=== PATIENT | female | born 1955 | race Caucasian/White ===

== ENCOUNTER 2022-02-21 09:12 | Observation (INO) ==
--- NOTE | 2022-02-11 11:57 | PAT Medication Instructions ---
Medication Instructions Date of Service February 11, 2022 Home Medications meloxicam 7.5 mg tablet 7.5 mg PO QAM multivitamin 1 tab PO QAM glucosamine sulfate 500 mg tablet (Glucosamine) 500 mg PO QAM turmeric root extract 500 mg capsule 500 mg PO QAM ASK your surgeon for instructions meloxicam 7.5 mg tablet 7.5 mg PO QAM STOP taking 2 weeks before surgery (or as soon as possible if surgery is within 2 weeks) glucosamine sulfate 500 mg tablet (Glucosamine) 500 mg PO QAM turmeric root extract 500 mg capsule 500 mg PO QAM DO NOT take the morning of surgery multivitamin 1 tab PO QAM Other Notes If you have any questions please call us at [phone] or [phone] or [phone] or [phone]
--- NOTE | 2022-02-12 12:52 | Anesthesiology Consultation ---
Date of Service February 12, 2022 Assessment & Plan (1) Encounter for pre-operative examination: Chart Review Chart Review: Acceptable Risk for Surgery (pending preop Covid testing results ) and Patient seen in Pre Admission Testing Per PAT appt on 02/12/22, patient denies any recent travel or large group activities. No known Covid positive exposures or Covid related symptoms. No known Covid infection in the past 90 days. Pt is vaccinated for Covid. Preop Covid testing scheduled 02/19/22 = will await results. Educated on importance of self quarantining, social distancing and wearing mask in public for the patient one week prior to surgery and after Covid testing done Teaching & Discussion Pre-Anesthesia Teaching/Discussion Notes: Instructed NPO after midnight before surgery,except medications with 15 cc of water. Medication instructions provided according to the [facility] guidelines. History Surgery Operation Date: 02/21/22 12:30 Proposed Procedures p Right Total Knee Replacement - Eduardo Bunn MD Height/Weight Height: 4 ft 11.5 in Weight: 58.5 kg Allergies Allergy/AdvReac Type Severity Reaction Status Date / Time PENICILLIN Allergy Unknown Unknown Uncoded 02/11/22 11:19 Medications Home Medications Medication Instructions Recorded Confirmed Last Taken meloxicam 7.5 mg tablet 7.5 mg PO QAM 07/05/21 02/11/22 Unknown multivitamin 1 tab PO QAM 07/05/21 02/11/22 Unknown glucosamine sulfate 500 mg tablet 500 mg PO QAM 02/06/22 02/11/22 Unknown (Glucosamine) turmeric root extract 500 mg 500 mg PO QAM 02/11/22 02/11/22 Unknown capsule Past Medical History Medical History Arthritis Knees and right hand History of COVID-19 08/2021, 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 No residual issues Hx of renal calculi No recent issues Exercise / Class Metabolic Activity II 4-5 Yardwork/Stairs/Walk up hill (one flight of stairs - no chest pain or SOB ) Past Surgical History Surgical History History of wisdom tooth extraction Hx of colonoscopy Past Anesthesia History No Hx of Anesthesia Complications and No Family Hx of Anesthesia Complications History of PONV No Hx of PONV and No Hx of Motion Sickness Social History Smoking Status: Never smoker Do You Dip or Chew Tobacco: No Hx Alcohol Use: Yes (wine cooler) Alcohol type: other alcohol intake frequency: holidays/special occasions only Hx Substance Use: No substance use type: does not use Review of Systems Mild snoring- no witnessed apnea- no hx of sleep study Patient denies chest pain, shortness of breath, dyspnea on exertion, reflux, cough, wheezing, palpitations. No hx of seizures, stroke, ME. No hx of blood clots or blood transfusions Physical Exam Vital Signs VITALS BP 149/69 P 78 TEMP 98.4 SP02 96% RESP 16 Constitutional no acute distress ENMT Mouth: no TMJ clicking Thyromental Distance: < 3.5 Finger Breadths (3.0) Mallampati Class: III Missing molar Neck + limited neck extension (mild ) Respiratory normal respiratory effort; no respiratory distress Auscultation: lungs clear to auscultation bilaterally; no wheezes Cardiovascular Rate/Rhythm: regular rate and regular rhythm Heart Sounds: no murmur Vessels: no carotid bruit Musculoskeletal Spine: no pain with cervical ROM Extremities: extremities normal to inspection Psychiatric Orientation: alert Lab Results Anesthesia Preop Results Results Anesthesia Widget: WBC 4.30 K/ul (4.8-10.8) L 02/12/22 Hgb 12.8 g/dl (12.0-16.0) 02/12/22 Hct 37.5 % (34.1-44.9) 02/12/22 Plt 342 K/uL (130-400) 02/12/22 Na 139 mmol/L (136-145) 02/12/22 K 4.0 mmol/L (3.5-5.1) 02/12/22 Cl 106 mmol/L (98-107) 02/12/22 CO2 26 mmol/L (21-32) 02/12/22 BUN 15 mg/dl (6-23) 02/12/22 Creat 0.69 mg/dl (0.6-1.2) 02/12/22 Glucose Level 97 mg/dl (70-99(Fasting)) 02/12/22 PT 10.5 Seconds (9.0-12.0) 02/12/22 PTT 26.9 Seconds (21.0-31.0) 02/12/22 INR 1.0 (0.9-1.1) 02/12/22 Blood Type A Positive 02/12/22 Antibody Screen NEGATIVE 02/12/22 Testing Electrocardiogram Date: 02/12/22 Findings: + NSR @ (74bpm ) Normal EKG per cardio. Chest X-Ray Date: 02/12/22 Findings: + NAD
[~2022-02-21 09:12] MED LIST: ACETAMINOPHEN 500 MG TAB PO SCH; BUPIVACAINE 0.5 % 5 MG/1 ML PF 10ML VIAL ONE; BUPIVACAINE LIPOSOME/PF 266 MG, BUPIVACAINE/EPINEPHRINE 50 ML, SODIUM CHLORIDE 0.9% 30 ... INFIL SCH; CEFAZOLIN SCH; CeleBREX 200 MG CAP PO SCH; EPINEPHrine INJ 1 MG/ML AMP ONE; FAMOTIDINE 20 MG TAB PO SCH; LR 500ML BOLUS, THEN 15ML/HR IV SCH; LR 60ML/HR IV SCH; METOCLOPRAMIDE HCL 10 MG TABLET PO SCH; ROPIVACAINE 0.5% 5 MG/ML 30 ML VIAL ONE; Scopolamine 1 MG TDSY TD SCH; TRANEXAMIC ACID 1,000 MG **IV Intra-op IV SCH; ceFAZolin 2000MG 2,000 MG/15 ML SYR IV SCH
[2022-02-21] MEDS ORDERED: fentaNYL citrate 100 MCG/2 ML VIAL ONE (09:30)
[2022-02-21] MEDS ORDERED: MIDAZOLAM HCL 1 MG/ML 2ML VIAL ONE (09:34)
[2022-02-21] MEDS ORDERED: PROPOFOL IV EMULSION 10 MG/ML 20 ML VIAL IV ONE (09:34)
--- NOTE | 2022-02-21 10:39 | History & Physical Bridge Note ---
Date of Service February 21, 2022 History & Physical Bridge Note I have examined the patient, reviewed the History & Physical and in the interval since the performance of the History & Physical I have noted the following changes of clinical significance: no changes noted
[2022-02-21] MEDS ORDERED: BUPIVACAINE/EPINEPHRINE 0.25% 1:200,000 30 ML VIAL ONE (10:40)
[2022-02-21] MEDS ORDERED: SODIUM CHLORIDE 0.9% PF 50 ML VIAL ONE (10:41)
[2022-02-21] MEDS ORDERED: BUPIVACAINE LIPOSOME 1.3% 266 MG/20 ML VIAL ONE (10:41)
--- NOTE | 2022-02-21 12:51 | Operative Report ---
PG Post Operative Report Pre & Post Diagnosis Operation Date: 02/21/22 10:40 Pre-Op Diagnosis: Right Knee Advanced Degenerative Joint Disease Post-Op Diagnosis: Right Knee Advanced Degenerative Joint Disease I identified the patient and participated in the time-out.: Yes Procedure Operation Date: 02/21/22 10:40 Actual Procedures p Right Total Knee Replacement - Eduardo Bunn MD Surgeon Eduardo Bunn MD Sales Enablement Consultant Laci España PA-C Estimated Blood Loss 50 Findings Consistent with Post-Op Diagnosis Operative findings revealed advanced right knee tricompartment DJD. She had grade 4 [id number] disease in all 3 compartments most severe in the medial side. She had significant osteophytes particularly anteriorly and medially. She had a varus deformity to her knee and about a 15 degree flexion contracture with a fixed varus deformity. Fluids 600 cc Specimens Right knee sent for pathology Drains None Anesthesia Type Spinal MAC Complications none Indications Patient is 66-year-old reasonably active female has had a long history of bilateral knee pain discomfort that is gradually gotten worse over the time patient been to extensive conservative treatment which became less successful over time. Pain has been debilitating that she can trouble walking and doing any significant activities. She elected proceed with total knee arthroplasty. Description of Procedure Operative implants consist of: 1 Biomet Vanguard size 62.5 right posterior stabilized femoral component. 2. Biomet size 63 tibial tray. 3. 10 mm posterior stabilized polyethylene insert. 4. 28 x 8 all Paller patella. The patient was taken to the operating room, identified, placed on the operating table supine position protectors were properly padded. IV antibiotics arrived by anesthesia team. A spinal anesthetic and been implemented in the holding room along with an abductor canal block. A Helms catheter was placed in sterile fashion. Right Tetrick was then placed in the right lower extremities and prepped and draped in usual sterile fashion. The right leg was elevated exsanguinated with use of an Esmarch and the tourniquet was set at 300 mmHg. An anterior approach to the right knee was then performed to longitudinal incision centered over the patella. Sharp dissection was carried through subcutaneous tissue down the extensor mechanism. A medial parapatellar arthrotomy incision was made. Some subperiosteal dissection was carried out medially. The fat pad was resected from Neath patella tendon. The lateral patellofemoral ligament was released. Patella subluxated laterally and the knee was flexed. The osteophytes taken off distal femur. The ACL and PCL were then released from distal femur the tibia subluxated anteriorly. The external tibial alignment jig was then placed the anterior face of the tibia and adjusted 14 mm medially. Proximal tibial cut was made to remove about a millimeter bone from most deficient aspect medial tibial plateau. Some osteophytes taken off medial and posterior medially. Tibia sized to a size 63. Attention drawn the femur. The distal femur during the sharp drop with intramedullary canal was suction. A right 5 degree valgus cutting guide was placed. Distal femoral cutting block was pinned in place. Distal femoral cut was made to take an additional 3 mm bone off distal femur. The femur was then sized to a size 62.5. The AP cutting block was pinned parallel to the epicondylar axis which was 4 degrees of external rotation. The anterior cut, anterior chamfer, posterior cut, posterior chamfer cuts were made. The box cutting guide was placed in just slight lateral box cut was made. The knee was flexed. The remnants of the medial and lateral menisci were excised. The osteophytes taken off the posterior aspect of femur. A trial femoral component was placed. The tibial tray was pinned in maximum external rotation and the drill and stem punch were used to create defect in proximal tibia for the tibial tray. Knee was then trialed and the 10 mm insert fit most appropriately. Attention drawn the patella. The patella was cleaned of all soft tissue. Patella thickness measured 18 mm in thickness was cut down to 12. It was sized to a size 28 patella. The lug holes were drilled for the 31 patella. The lateral osteophyte was removed. Patella button was placed. Knee was taken through range of motion and the patella tracked nicely with no thumbs test. Attention drawn to place the permanent components. All trial components were removed. Bone plug was placed in the distal femur limit blood loss. Double batch Palacos G cement was mixed. A Biomet Vanguard size 62.5 right posterior stabilized femoral component, size 63 tibial tray, a 10 mm posterior stabilized polyethylene insert, and a 28 x 8 all Paller patella then cemented in place. Knee was brought out into full extension total cement hardened. Final cement check was then performed. The pericapsular tissues were injected with total 100 cc of combination of 20 cc of Exparel, 30 cc normal saline, 50 cc of quarter percent Marcaine with epinephrine. Patient did receive 1 g tranexamic acid. The tourniquet was then let down for final tourniquet time of 52 minutes. Hemostasis reduced electrocautery. Extensor mechanism closed with combination 1 PDS suture and #1 Vicryl suture in a [id number] fashion. Extensor mechanism checked found to be intact with subcutaneous tissue then closed with 2 Dexon suture in a buried interrupted fashion skin was closed skin burak. Leg was then cleaned and dried a sterile dressing was Xeroform, 4 x 4's, sterile cast padding, Aurelio bandage were applied. Patient then transferred to the recovery room in stable condition. Patient tolerated procedure well and there were no complications. Laci España, my physician bilingual legal assistant, was present for the entire procedure. His assistance was essential and required for appropriate patient positioning, prepping and draping, surgical exposure, performing the technical details of the operation, placement the implants, closure of the wound, and placement of the sterile bandage. I attest to the content of the Intraoperative Record and any orders documented therein. Any exceptions are noted below.
--- NOTE | 2022-02-21 13:04 | XRay Report ---
XR knee RT 1 or 2V routine CLINICAL HISTORY: Surgical Post Op. Status post total knee replacement COMPARISON STUDY: No previous studies for comparison. TECHNIQUE: 2 right knee views FINDINGS: The patient is status post total knee replacement. The prosthetic components are in anatomi c alignment with no acute abnormality seen. Air is present within the soft tissues from the procedure . Skin burak are seen anteriorly. IMPRESSION: 1. Status post total knee replacement with resurfacing of the patella. ACT 112: Negative or not required by law. Electronically signed by: Rick Stanton M.D. 02/21/2022 1:02 PM
--- NOTE | 2022-02-21 13:37 | Anesthesiology Progress Note ---
Date of Service February 21, 2022 Anesthesia Post Procedure Vital Signs Vital Signs: Temp Pulse Pulse Resp BP Pulse Ox O2 Del Method 02/21/22 13:10 36.3 C L 91 H 18 133/71 98 Room Air 02/21/22 13:00 76 19 122/63 99 Oxymask 02/21/22 12:50 80 16 125/61 99 Oxymask 02/21/22 13:20 85 20 126/69 96 Room Air 02/21/22 12:40 81 15 127/66 99 Oxymask 02/21/22 12:38 36.2 C L 91 H 14 134/67 98 Oxymask 02/21/22 09:49 36.4 C L 71 18 168/88 H Room Air O2 Flow Rate 02/21/22 13:10 02/21/22 13:00 3 02/21/22 12:50 3 02/21/22 13:20 02/21/22 12:40 6 02/21/22 12:38 6 02/21/22 09:49 Pain Intensity Right Knee: Pain Intensity: 0 Transfer of Care Handoff Completed per policy Notes Mental Status: alert / awake / arousable Patient Amnestic to Procedure: Yes Nausea / Vomiting: adequately controlled Pain: adequately controlled Airway Patency, RR, SpO2: stable & adequate BP & HR: stable & adequate Hydration State: stable & adequate Neuraxial Anesthesia: was administered and sensory block is resolving Anesthetic Complications: no major complications apparent
[2022-02-21] MEDS ORDERED: ePHEDrine sulfate 50 MG/ML AMP IV PRN (13:42)
[2022-02-21] MEDS ORDERED: ATROPINE SULFATE 0.1 MG/ML 10ML SYR IV PRN (13:42)
[2022-02-21] MEDS ORDERED: bisacodyL 10 MG SUPP PR PRN (13:57)
[2022-02-21] MEDS ORDERED: ONDANSETRON INJ 2 MG/ML 2 ML VIAL IV PRN (13:57)
[2022-02-21] MEDS ORDERED: oxyCODONE HCL IR 5 MG TAB (IMMEDIATE RELEASE) PO PRN (13:57)
[2022-02-21] MEDS ORDERED: METOCLOPRAMIDE HCL INJ 5 MG/ML 2 ML VIAL IV PRN (13:57)
[2022-02-21] MEDS ORDERED: HYDROmorphone INJ 0.5 MG/0.5 ML SYR IV PRN (13:57)
[2022-02-21] MEDS ORDERED: SODIUM CHLORIDE 0.9% 1000ML 1,000 ML IV SCH (13:57)
[2022-02-21] MEDS ORDERED: MAGNESIUM HYDROXIDE SUSP 30 ML UDC PO PRN (13:57)
[2022-02-21] MEDS ORDERED: ALUMINUM/MAGNESIUM SUSP 30 ML UDC PO PRN (13:57)
[2022-02-21] MEDS ORDERED: NALOXONE HCL 0.4 MG/1 ML VIAL/CARP IV PRN (13:57)
[2022-02-21] MEDS ORDERED: diphenhydrAMINE Capsule 25 MG CAP PO PRN (13:57)
[2022-02-21] MEDS ORDERED: KETOROLAC 30 MG/ML VIAL ONE (16:26)
[2022-02-21] MEDS: KETOROLAC 30 MG/ML VIAL IV SCH ×2 (16:29→20:44)
--- NOTE | 2022-02-21 16:41 | Progress Notes ---
DATE OF NOTE: 02/21/2022. SUBJECTIVE: A 66-year-old female postoperative from right knee replacement. She is doing well. Jus t waiting for a bed placement. No chest pain or shortness of breath. She has got the feeling back i n her legs. OBJECTIVE: VITAL SIGNS: Temperature 36.3. Vital signs are stable. GENERAL: Physical exam shows a pleasant middle-aged female. She is sitting up in bed and looks comf ortable. Awake, alert and oriented. LUNGS: Clear to auscultation. HEART: Regular rate and rhythm. ABDOMEN: Soft, nontender, nondistended. EXTREMITIES: Grossly neurovascularly intact except as follows. Examination of the right leg reveals the leg to be well aligned. Dressing is clean, dry and intact. She can dorsiflex and plantarflex her foot appropriately. She is neurologically intact. X-RAYS: X-rays of the right knee from recovery room are reviewed. It shows a cemented posterior sta bilized total knee arthroplasty. Components looked to be in good position. No signs of problems. ASSESSMENT: A 66-year-old white female postoperative from right knee replacement, doing well. Pain is controlled. She is neurologically intact. PLAN: 1. DVT prophylaxis includes thigh-high TEDs, SCDs, and aspirin twice a day. 2. PT, OT, weightbear as tolerated. Right total knee protocol. 3. Pain control, doing okay with current pain regimen. 4. IV antibiotics x24 hours. 5. Disposition: She is planning to be discharged to home with some home health likely tomorrow afte r therapy. Job ID: [id number]
[2022-02-21] MEDS: ceFAZolin 1000MG 1,000 MG/7.5 ML SYR IV SCH (18:14)
[2022-02-21] MEDS: Scopolamine CHECK PATCH PLACEMENT SCH (18:25)
[2022-02-21] MEDS ORDERED: TRANEXAMIC ACID / 0.7% NACL 1,000 MG/100 ML BAG IV SCH (18:45)
[2022-02-21] MEDS: ACETAMINOPHEN 500 MG TAB PO SCH (20:40)
[2022-02-21] MEDS: ASCORBIC ACID 500 MG TAB PO SCH (20:41)
[2022-02-21] MEDS: ASPIRIN 81 MG ECTAB PO SCH (20:42)
[2022-02-21] MEDS: DOCUSATE SODIUM 100 MG CAP PO SCH (20:43)
[2022-02-21] MEDS ORDERED: SENNA 8.6 MG TAB PO SCH (21:00)
[2022-02-22] MEDS: Scopolamine CHECK PATCH PLACEMENT SCH ×2 (01:09→06:45)
[2022-02-22] MEDS: KETOROLAC 30 MG/ML VIAL IV SCH ×2 (04:42→09:15)
[2022-02-22] MEDS: ACETAMINOPHEN 500 MG TAB PO SCH (04:43)
[2022-02-22 06:37] LABS: Hemoglobin 9.9 g/dl (12.0-16.0); Mean Corpuscular Hemoglobin 30.5 pg (25.0-34.0); Mean Corpuscular Hgb Conc 34.1 g/dL (32.0-36.0); Mean Corpuscular Volume 89.2 fL (80.0-100.0); Mean Platelet Volume 9.2 fL (9.4-12.3); Platelet Count 234 K/uL (130-400); RDW Coefficient of Variation 12.9 % (11.5-14.5); RDW Standard Deviation 42.2 fL (36.4-46.3); Red Blood Count 3.25 M/uL (3.93-5.22); White Blood Count 8.68 K/ul (4.8-10.8)
[2022-02-22] MEDS: ceFAZolin 1000MG 1,000 MG/7.5 ML SYR IV SCH (06:44)
--- NOTE | 2022-02-22 06:45 | Orthopedic Progress Note ---
Date of Service February 22, 2022 Assessment & Plan (1) Status post right knee replacement: Overall she is doing very well. She is having too much pain in the right knee. She will be seen by physical therapy today for ambulation and range of motion exercises. She is on aspirin for DVT prophylaxis. She can be discharged home later today. She will follow-up with orthopedics in 2 weeks. Haim Spaulding was seen and examined at bedside this morning. Overall she is doing very well. She is having too much pain in the right knee. She has been up and ambulating to the bathroom. She has no complaints.. Review of Systems All systems reviewed & are unremarkable except as noted in HPI & below. Physical Exam On physical examination of the right knee, the dressing is clean and dry. Her leg is out full extension. She has active dorsiflexion and plantarflexion of the right ankle.. Results & Data Results & Data Laboratory Results . Diagnostic Findings . PG Care Time/CCT Total # of Minutes Spent Total Time Spent with Patient: Total time spent is greater than 50% in coordination of care (as documented) at patient's floor/unit and/or counseling patient: Coding Level of Care Code 35818 Post Operative Follow-Up Diagnoses Status post right knee replacement Z96.651
[2022-02-22] MEDS: ASCORBIC ACID 500 MG TAB PO SCH (06:46)
[2022-02-22 07:14] LABS: BUN Creatinine Ratio 13.3 (10-20); Calcium 8.4 mg/dl (8.5-10.1); Creatinine Clr Calc Pharmacy 74.3 ml/min; Est GFR (African American) 111.6 ml/min; Est GFR (Non-African American) 96.3 ml/min; Potassium 3.6 mmol/L (3.5-5.1)
[2022-02-22] MEDS ORDERED: dexAMETHasone 10 MG in SYRINGE 0 ML IV SCH (08:00)
[2022-02-22] MEDS: ASPIRIN 81 MG ECTAB PO SCH (08:32)
[2022-02-22] MEDS: DOCUSATE SODIUM 100 MG CAP PO SCH (08:32)
[2022-02-22] MEDS ORDERED: MULTIVITAMIN TAB PO SCH (09:00)
[2022-02-22] MEDS ORDERED: NON-FORMULARY MEDICATION (Multivitamin Tablet) PO SCH (09:00)
[2022-02-22] MEDS ORDERED: GLUCOSAMINE SULFATE 500 MG PO SCH (09:00)
[2022-02-22] MEDS ORDERED: DOCUSATE SODIUM/SENNA 50/8.6MG TAB PO SCH (09:00)
[2022-02-22] MEDS ORDERED: NON-FORMULARY MEDICATION (Turmeric Root Extract 500 mg Capsule) PO SCH (09:00)
--- NOTE | 2022-02-24 19:16 | Discharge Summary ---
Date of Service February 24, 2022 Discharge Data Procedures Performed Operation Date: 02/21/22 10:40 Actual Procedures p Right Total Knee Replacement - Eduardo Bunn MD Hospital Course (1) Status post right knee replacement: This is a 66 year old patient admitted on 02/21/22 and underwent total knee arthroplasty. She tolerated the procedure well and there were no complications. Transferred to the PACU post op and later to the orthopedic floor for further care. She was given ancef for antibiotic prophylaxis. She was also given KHUSHI stockings, SCDs, and aspirin for DVT prophylaxis. Hemoglobin, hematocrit, and vital signs were monitored during her hospital stay and remained stable. Did not require any blood transfusions. There were no complications during her hospital stay. By post op day #1 the patient was tolerating a regular diet, pain was reasonably controlled with oral pain medicine, and she was participating in physical therapy. On post op day #1 the patient was discharged home and set up with home health care. She was given printed discharge instructions including prescriptions for extra strength tylenol, aspirin, toradol, zofran, senokot, and oxycodone. Continue physical therapy, weight bearing as tolerated. Continue KHUSHI stockings. Follow up approximately 2 weeks post op or sooner if there are problems or concerns. Coding Level of Care Code None Diagnoses Status post right knee replacement Z96.651
== END 2022-02-22 11:45 | disposition home health service (06) ==
LOC: ASU 09:12 → 3E 09:12